=== PATIENT | female | born 1955 | race Caucasian/White ===

== ENCOUNTER → 2016-10-05 | Outpatient (REF) | payer BC ==
[2016-10-05 15:02] LABS: MEAN CORPUSCULAR HEMOGLOBIN 28.4 pg (27.0-33.0); MEAN CORPUSCULAR VOLUME 85.9 fl (80.0-96.0); WHITE BLOOD COUNT 5.1 K/mm3 (4.0-10.0)
[2016-10-05 15:12] LABS: CALCIUM LEVEL 8.8 MG/DL (8.5-10.1); CREATININE FOR GFR 1.11 MG/DL (0.55-1.02); GLOMERULAR FILTRATION RATE 53.7 (>51); POTASSIUM SERUM 3.9 MEQ/L (3.5-5.1)
== END ==
LOC: M SFHCLACO 08:12
PROVIDERS: ATTEND Physician Assistant
DX: J44.9 Chronic obstructive pulmonary disease, unspecified (principal); F17.200 Nicotine dependence, unspecified, uncomplicated; I10 Essential (primary) hypertension

== ENCOUNTER → 2017-04-19 | Outpatient (CLI) | payer BC ==
[~2017-04-19] MED LIST: ISOVUE-370 76% 100ML VIAL (Q9967) As Ordered ONE
--- NOTE | 2017-04-20 00:42 | REP ---
CT of the chest with IV contrast: Comparison is the most recent prior study dated 11/19/2015. There are multiple old left rib fractures of the left fifth through ninth ribs. Many of these fractures are healed with fibrous union. On the comparison CT there were acute fractures in the left seventh, eighth and ninth ribs. On the study today the left fifth rib fracture could be acute, subacute or old. The sixth rib fracture appears old. There are no infiltrates or effusions. The infiltrates identified on the previous study have resolved. There are numerous bulla throughout the lung hernandez bilaterally involving the upper and lower lobes equally. This is compatible with bullous emphysema. No masses or nodules are identified. There are no pleural effusions. There is no mediastinal adenopathy. No hilar adenopathy. No axillary adenopathy. The thoracic aorta is unremarkable. Cardiac size is normal. There is no pericardial effusion. The visualized upper abdominal contents are unremarkable. There is no adrenal mass. Impression: Multiple fractures in the left 5th through 9th ribs, all appearing old with the exception that the left fifth rib fracture may be acute or subacute. There is no pneumothorax, pulmonary contusion or pleural fluid collection. There are no masses or adenopathy. There are numerous small bulla throughout the upper and lower lung lobes compatible with bullous emphysema. Signed by Sukhjinder Peter MD 04/19/2017 06:39 P
== END ==
LOC: M RAD 16:37
PROVIDERS: ATTEND Physician Assistant
DX: R49.0 Dysphonia (principal); R07.81 Pleurodynia
CPT/HCPCS: 71260; Q9967

== ENCOUNTER → 2018-08-09 | Outpatient (CLI) | payer BC ==
--- NOTE | 2018-08-28 00:45 | ECWPNPC ---
PATIENT NAME: SARAH SEAMAN : 1955 GENDER: FEMALE VISIT DATE: 08/09/2018 DISCHARGE DATE: 08/09/18 1653 VISIT LOCKED DATE TIME: PHYSICIAN: GAETNAO MCKEON MD RESOURCE: GAETANO MCKEON MD REASON FOR APPOINTMENT 1. PRE OP SPINAL TAP HISTORY OF PRESENT ILLNESS FALL RISK SCREENING: SCREENING :NO FALLS IN THE PAST YEAR 62 YEAR OLD FEMALE PATIENT WITH A HISTORY OF NEUROLOGICAL CHANGES. THE PATIENT WAS REFERRED TO US BY DR. REAGAN FOR A SPINAL TAP AND IS HERE TODAY FOR AN EVALUATION. PATIENT DENIES UNEXPLAINABLE WEIGHT LOSS, FEVER, CHILLS, NEW CHANGES ON HER URINARY OR BOWEL CONTROL. PAIN SCREENING: PATIENT HAS A COMPLAINT OF ACUTE OR CHRONIC PAIN :YES CURRENT MEDICATIONS TAKING LOSARTAN POTASSIUM 50 MG TABLET 1 TABLET ORALLY ONCE A DAY TAKING SPIRIVA RESPIMAT 2.5 MCG/ACT AEROSOL SOLUTION 2 PUFFS INHALATION ONCE A DAY TAKING SYMBICORT 160-4.5 MCG/ACT AEROSOL 2 PUFFS INHALATION TWICE A DAY TAKING ALBUTEROL SULFATE (2.5 MG/3ML) 0.083% NEBULIZATION SOLUTION 3 ML INHALATION EVERY 4 HOURS NEEDED TAKING ALBUTEROL SULFATE HFA 108 (90 BASE) MCG/ACT AEROSOL SOLUTION 2 PUFFS INHALATION 2-3 TIMES A DAY TAKING CHANTIX 1 MG TABLET 1 TABLET ORALLY TWICE A DAY TAKING FEMHRT 1/5 1-5 MG-MCG TABLET (JINTELLI) 1 TABLET - ALEXA ORALLY ONCE A DAY TAKING ERGOCALCIFEROL 14176 UNIT CAPSULE 1 CAPSULE ORALLY WEEKLY TAKING ATORVASTATIN CALCIUM 10 MG TABLET 1 TABLET ORALLY ONCE A DAY TAKING VITAMIN B-12 1000 MCG TABLET 1 TABLET ORALLY ONCE A DAY MEDICATION LIST REVIEWED AND RECONCILED WITH THE PATIENT PAST MEDICAL HISTORY ANXIETY MENOPAUSAL SYNDROME COPD SMOKING HISTORY OF ALCOHOL AND SUBSTANCE ABUSE HTN HIGH CHOLESTEROL SMALL VESSAL DISEASE MS - POSSIBLE MIGRAINES W/ AURA ARTHRITIS ALLERGIES WELLBUTRIN: EXTREME AGITATION: SIDE EFFECTS SURGICAL HISTORY LAPAROSCOPY FOR ENDOMETRIOSIS 1992 TONSILLECTOMY CHILDHOOD FAMILY HISTORY FATHER: 44 YRS, HEART ATTACK MOTHER: 47 YRS 2 BROTHER(S) , 1 SISTER(S) . 2 SON(S) - HEALTHY. BROTHER - COPD, [place]. SOCIAL HISTORY GENERAL: TOBACCO USE ARE YOU A:FORMER SMOKER HOW LONG HAS IT BEEN SINCE YOU LAST SMOKED?1-5 YEARS LAST CIGARETTE 11/22/2016 LUNG CANCER SCREENING SMOKING STATUS:FORMER SMOKER BMI CARE GOAL FOLLOW-UP ABOVE NORMAL BMI FOLLOW-UPDIETARY MANAGEMENT EDUCATION, GUIDANCE, AND COUNSELING ALCOHOL SCREENING DID YOU HAVE A DRINK CONTAINING ALCOHOL IN THE PAST YEAR?NO POINTS0 INTERPRETATIONNEGATIVE RECREATIONAL DRUG USE DENIES. CAFFEINE 2-5/DAY. SEXUAL HX HAD SEX IN THE LAST 12 MONTHS (VAGINAL, ORAL, OR ANAL)?NO HAVE YOU EVER HAD AN STD?NO HIV / HEP-C SCREENING HIV TEST OFFERED TO PATIENT:YES DATE OFFERED:08/31/2016 TEST ACCEPTED:NO HEP-C TEST OFFERED TO PATIENT:YES DATE OFFERED:08/31/2016 REASON:PATIENT DECLINED TEST ACCEPTED:NO REASON:PATIENT DECLINED CONGREGATIONAL NO RESTORATION BELIEFS THAT WOULD IMPACT HEALTH CARE. LANGUAGE LANGUAGES SPOKEN:VENEZUELAN LEARNING BARRIERS / SPECIAL NEEDS CHANGE FROM LAST VISIT?NO BARRIERS TO LEARNING?NO HEARING IMPAIRED?NO VISION IMPAIRED?YES :CORRECTIVE LENSES COGNITIVELY IMPAIRED?NO READINESS TO LEARN?YES LEARNING PREFERENCES?NO LEARNING CAPABILITIES PRESENT?YES EMOTIONAL BARRIERS?NO SPECIAL DEVICES?NO WATER QUALITY TESTER NEEDED?NO OCCUPATION: ALCOHOL AND SUBSTANCE ABUSE COUNSELOR. DIET: HEALTHY. EXERCISE: USED TO RUN, BUT NO LONGER ABLE DUE TO COPD. MARITAL STATUS: . OTHERS AT HOME: SON. PAIN CLINIC PFS, CLERGY, PUBLIC HEALTH REFERRALS HAS THE PATIENT BEEN EDUCATED REGARDING HIS/HER PLAN OF CARE?YES HAS THE PATIENT BEEN EDUCATED REGARDING PAIN, THE RISK FOR PAIN, THE IMPORTANCE OF EFFECTIVE PAIN MANAGEMENT, AND THE PAIN ASSESSMENT PROCESS?YES ADVANCE DIRECTIVE ADVANCE DIRECTIVE DISCUSSED WITH PATIENT:YES HCP - SALOME SEAMAN ([facility]) REVIEWED WITH PATIENT 08/09/18 1403 JS. HOSPITALIZATION/MAJOR DIAGNOSTIC PROCEDURE FOR SURGERY ABOVE CHEST PAIN/LOW BLOOD PRESSURE SEIZURE REVIEW OF SYSTEMS REVIEWED BY: PROVIDER: GAETANO MCKEON MD . CONSTITUTIONAL: ANY CHANGE IN YOUR MEDICAL CONDITION? NO . CHILLS NO . FEVER NO . INFECTION: DO YOU HAVE NEW INFECTIONS? NO . DO YOU HAVE HISTORY OF MRSA? NO . MUSCULOSKELETAL: ANY NEW PATTERNS OF PAIN OR NUMBNESS? NO . SYTEMIC LUPUS NO . GASTROENTEROLOGY: ANY NEW CHANGE IN BOWEL CONTROL? NO . BARRETTS ESOPHAGUS NO . CIRRHOSIS NO . HEPATITIS NO . LIVER FAILURE NO . ACID REFLUX NO . UNEXPLAINED WEIGHT LOSS NO . GENITOURINARY: ANY NEW CHANGE IN BLADDER CONTROL? NO . IS THERE A CHANCE YOU COULD BE ? NO . HEMATOLOGY/LYMPH: DO YOU TAKE ANY BLOOD THINNERS? (FOR EXAMPLE- COUMADIN, PLAVIX, AGGRENOX, PLATEL, PRADAXA, OR XARELTO) NO . WHEN WAS YOUR LAST DOSE? DATE: TIME: . LOW PLATELET COUNT NO . SICKLE CELL DISEASE NO . VON WILLIEBRANDS NO . FACTOR V LEIDEN NO . THALLASEMIA NO . ANEMIA NO . EASY BRUISING NO . NEUROLOGY: HAVE YOU FALLEN IN THE PAST 6 MONTHS? NO . ANY NEW EXTREMITY NUMBNESS OR WEAKNESS? NO . HEAD INJURY NO . DEMENTIA NO . CEREBRAL PALSY NO . MULTIPLE SCLEROSIS YES, POSSIBLE, BEING WORKED UP FOR MS CURRENTLY. STATES SOME PARALYSIS TO RIGHT SIDE FOR A FEW WEEKS IN HER 30'S . DIZZINESS NO . HEADACHE NO . STROKES NO . VERTIGO NO . CARDIOLOGY: DO YOU HAVE A PACEMAKER OR DEFIBRILLATOR? NO . ANGINA NO . HEART ATTACK NO . HEART SURGERY NO . CONGESTIVE HEART FAILURE/FLUID OVERLOAD NO . CHEST PAIN NO . HIGH BLOOD PRESSURE ON MEDICATION(S) . IRREGULAR HEART BEAT NO . RESPIRATORY: HAVE YOU BEEN SICK IN THE PAST WEEK? NO . FEVER NO . FLU LIKE SYMPTOMS? NO . CPAP NO . BYPAP NO . ASTHMA YES . EMPHYSEMA YES . CHRONIC LUNG DISEASES YES, COPD . SHORTNESS OF BREATH ON EXERTION NO . COUGH NO . SNORING NO . INTEGUMENTARY: DO YOU HAVE ANY RASHES OR OPEN SORES? NO . ALLERGIC/IMMUNO: ARE YOU ALLERGIC TO SHELLFISH OR IV DYE? NO . ANY NEW ALLERGIES? NO . PSYCHIATRIC: DO YOU HAVE THOUGHTS OF HURTING YOURSELF OR SOMEONE ELSE? NO . ARE YOU ABUSED, NEGLECTED, OR IN AN UNSAFE ENVIRONMENT? NO . ENDOCRINOLOGY: ARE YOU DIABETIC? NO . THYROID DISORDER NO . OTHER: DO YOU NEED ANY PRESCRIPTIONS? NO . IF YES, PLEASE LIST: ____ . ANY NEW PROBLEMS WITH YOUR MEDICATIONS? NO . WHEN DID YOU LAST EAT? ____ . WHEN DID YOU LAST DRINK? ____ . WHAT DID YOU LAST DRINK? ____ . NAME OF PERSON DRIVING YOU HOME? ____ . DO YOU HAVE ANY OTHER QUESTIONS OR CONCERNS NO . VITAL SIGNS WT 141.6 LBS, HT 66.25 IN, BMI 22.68 INDEX, BP 115/79 MM HG, HR 76 /MIN, RR 16 /MIN, TEMP 96.0 F, OXYGEN SAT % 97%, SAFE IN ENV? (Y/N) YES, NA INITIALS AW 1348, REVIEWED BY: MARICHUY. EXAMINATION GENERAL EXAMINATION: PATIENT IS ALERT O X 3 AND COOPERATIVE. LUNGS CLEAR, TO AUSCULTATION. HEART: NO MURMURS OR GALLOPS; FACIAL CRANIAL NERVES ARE GROSSLY NORMAL. GOOD SYMMETRY OF FACIAL MUSCLE MOVEMENT. NORMAL VISUAL LAZARO. ASSESSMENTS NEUROLOGICAL SYMPTOMS - R29.90 (PRIMARY) MS PROTOCOL. TREATMENT NEUROLOGICAL SYMPTOMS CLINICAL NOTES: WE DISCUSSED SEVERAL ISSUES WITH MRS. SEAMAN'S CASE. THE PATIENT WILL COME IN FOR A SPINAL TAP IN A FEW WEEKS. WE DISCUSSED THE BENEFITS AND RISKS OF THE PROCEDURE AND THE PATIENT WOULD LIKE TO PROCEED. INSTRUCTIONS WERE GIVEN, QUESTIONS WERE ANSWERED, PATIENT REPORTS UNDERSTANDING AND AGREES WITH THE PLAN. I, CHARAN HAYES, DOCUMENTED THE ABOVE INFORMATION ACTING A SCRIBE FOR DR. MCKEON. I HAVE REVIEWED THE ABOVE DOCUMENT, WRITTEN BY CHARAN MOJICAIBAdolfo AND I VERIFY THAT IT IS ACCURATE. PROCEDURE CODES FA211 ESTABILISHED PATIENT [facility] FACILITY CHARGE G8427 CURRENT MEDS W/DOSAGES DOCUMENTED G8730 PAIN ASSESS POS TOOL F/U PLAN DOC DISPOSITION & COMMUNICATION FOLLOW UP 3 WEEKS ELECTRONICALLY SIGNED BY GAETANO MCKEON MD, MD ON 08/27/2018 AT 04:34 PM EST DISCLAIMER : THIS IS A VISIT SUMMARY EXTRACTED FROM THE [employer] CHART. IT IS NOT A COPY OF THE [employer] PROGRESS NOTE. MTDD
== END ==
LOC: M PAIN 13:45
PROVIDERS: ATTEND Anesthesiology
DX: R29.90 Unspecified symptoms and signs involving the nervous system (principal); F41.9 Anxiety disorder, unspecified; J45.909 Unspecified asthma, uncomplicated; I10 Essential (primary) hypertension; E78.00 Pure hypercholesterolemia, unspecified; I73.9 Peripheral vascular disease, unspecified; M19.90 Unspecified osteoarthritis, unspecified site; G43.909 Migraine, unspecified, not intractable, without status migrainosus; Z79.899 Other long term (current) drug therapy; Z88.8 Allergy status to other drugs, medicaments and biological substances; Z86.59 Personal history of other mental and behavioral disorders; Z87.891 Personal history of nicotine dependence

== ENCOUNTER → 2018-08-29 | Outpatient (CLI) | payer BC ==
[~2018-08-29] MED LIST changes: -ISOVUE-370 76% 100ML VIAL (Q9967) As Ordered ONE; +LIDOCAINE 1% SDV INJ 30 ML VIAL As Ordered ONE; +MIDAZOLAM INJ 2 MG/2 ML VIAL (J2250) As Ordered ONE; +fentaNYL 100 MCG/2 ML INJECTION (J3010) As Ordered ONE
[2018-08-29 15:54] LABS: APPEARANCE, CSF CLEAR (CLEAR); COLOR, CSF COLORLESS (COLORLESS); CSF TUBE# CELL CNT TUBE 3
[2018-08-29 15:58] LABS: CSF TUBE# GLU TUBE 1; CSF TUBE# TP TUBE 1; GLUCOSE CSF 48 MG/DL (40-75); TOTAL PROTEIN,CSF 38 MG/DL (15-45)
--- NOTE | 2018-09-12 00:41 | ECWPNPC ---
PATIENT NAME: SARAH SEAMAN : 1955 GENDER: FEMALE VISIT DATE: 08/29/2018 DISCHARGE DATE: 08/29/18 1524 VISIT LOCKED DATE TIME: PHYSICIAN: GAETANO MCKEON MD RESOURCE: GAETANO MCKEON MD REASON FOR APPOINTMENT 1. SPINAL TAP HISTORY OF PRESENT ILLNESS HISTORY OF PRESENT ILLNESS: PAIN THE PATIENT DESCRIBES THE PAIN... FALL RISK SCREENING: SCREENING :NO FALLS IN THE PAST YEAR CURRENT MEDICATIONS TAKING LOSARTAN POTASSIUM 50 MG TABLET 1 TABLET ORALLY ONCE A DAY, NOTES: 08-28-182099 TAKING SPIRIVA RESPIMAT 2.5 MCG/ACT AEROSOL SOLUTION 2 PUFFS INHALATION ONCE A DAY, NOTES: 08-29-18699 TAKING ALBUTEROL SULFATE (2.5 MG/3ML) 0.083% NEBULIZATION SOLUTION 3 ML INHALATION EVERY 4 HOURS NEEDED, NOTES: NOT LATELY TAKING ALBUTEROL SULFATE HFA 108 (90 BASE) MCG/ACT AEROSOL SOLUTION 2 PUFFS INHALATION 2-3 TIMES A DAY TAKING CHANTIX 1 MG TABLET 1 TABLET ORALLY TWICE A DAY, NOTES: 08-29-18699 TAKING ERGOCALCIFEROL 10693 UNIT CAPSULE 1 CAPSULE ORALLY WEEKLY, NOTES: Tuesday TAKING ATORVASTATIN CALCIUM 10 MG TABLET 1 TABLET ORALLY ONCE A DAY, NOTES: 08-28-182099 TAKING VITAMIN B-12 1000 MCG TABLET 1 TABLET ORALLY ONCE A DAY, NOTES: 08-28-182099 TAKING SYMBICORT 160-4.5 MCG/ACT AEROSOL 2 PUFFS INHALATION TWICE A DAY, NOTES: 08-29-18 08 TAKING FEMHRT 1/5 1-5 MG-MCG TABLET (JINTELLI) 1 TABLET - ALEXA ORALLY ONCE A DAY, NOTES: 08-28-182099 MEDICATION LIST REVIEWED AND RECONCILED WITH THE PATIENT PAST MEDICAL HISTORY ANXIETY MENOPAUSAL SYNDROME COPD SMOKING HISTORY OF ALCOHOL AND SUBSTANCE ABUSE HTN HIGH CHOLESTEROL SMALL VESSAL DISEASE MS - POSSIBLE MIGRAINES W/ AURA ARTHRITIS ALLERGIES WELLBUTRIN: EXTREME AGITATION: SIDE EFFECTS SURGICAL HISTORY LAPAROSCOPY FOR ENDOMETRIOSIS 1992 TONSILLECTOMY CHILDHOOD FAMILY HISTORY FATHER: 44 YRS, HEART ATTACK MOTHER: 47 YRS 2 BROTHER(S) , 1 SISTER(S) . 2 SON(S) - HEALTHY. BROTHER - COPD, [place]. SOCIAL HISTORY GENERAL: TOBACCO USE ARE YOU A:FORMER SMOKER HOW LONG HAS IT BEEN SINCE YOU LAST SMOKED?1-5 YEARS LAST CIGARETTE 11/22/2016 LUNG CANCER SCREENING SMOKING STATUS:FORMER SMOKER BMI CARE GOAL FOLLOW-UP ABOVE NORMAL BMI FOLLOW-UPDIETARY MANAGEMENT EDUCATION, GUIDANCE, AND COUNSELING ALCOHOL SCREENING DID YOU HAVE A DRINK CONTAINING ALCOHOL IN THE PAST YEAR?NO POINTS0 INTERPRETATIONNEGATIVE RECREATIONAL DRUG USE DENIES. CAFFEINE 2-5/DAY. SEXUAL HX HAD SEX IN THE LAST 12 MONTHS (VAGINAL, ORAL, OR ANAL)?NO HAVE YOU EVER HAD AN STD?NO HIV / HEP-C SCREENING HIV TEST OFFERED TO PATIENT:YES DATE OFFERED:08/31/2016 TEST ACCEPTED:NO HEP-C TEST OFFERED TO PATIENT:YES DATE OFFERED:08/31/2016 REASON:PATIENT DECLINED TEST ACCEPTED:NO REASON:PATIENT DECLINED YARSANISM NO BAPTIST BELIEFS THAT WOULD IMPACT HEALTH CARE. LANGUAGE LANGUAGES SPOKEN:ARABIC LEARNING BARRIERS / SPECIAL NEEDS CHANGE FROM LAST VISIT?NO BARRIERS TO LEARNING?NO HEARING IMPAIRED?NO VISION IMPAIRED?YES COGNITIVELY IMPAIRED?NO :CORRECTIVE LENSES READINESS TO LEARN?YES LEARNING PREFERENCES?NO LEARNING CAPABILITIES PRESENT?YES EMOTIONAL BARRIERS?NO SPECIAL DEVICES?NO HEALTH EDUCATION TEACHER NEEDED?NO OCCUPATION: ALCOHOL AND SUBSTANCE ABUSE COUNSELOR. DIET: HEALTHY. EXERCISE: USED TO RUN, BUT NO LONGER ABLE DUE TO COPD. MARITAL STATUS: . OTHERS AT HOME: SON. PAIN CLINIC PFS, CLERGY, PUBLIC HEALTH REFERRALS HAS THE PATIENT BEEN EDUCATED REGARDING HIS/HER PLAN OF CARE?YES HAS THE PATIENT BEEN EDUCATED REGARDING PAIN, THE RISK FOR PAIN, THE IMPORTANCE OF EFFECTIVE PAIN MANAGEMENT, AND THE PAIN ASSESSMENT PROCESS?YES ADVANCE DIRECTIVE ADVANCE DIRECTIVE DISCUSSED WITH PATIENT:YES HCP - SALOME SEAMAN ([facility]) REVIEWED WITH PATIENT 08/09/18 1403 JS. HOSPITALIZATION/MAJOR DIAGNOSTIC PROCEDURE FOR SURGERY ABOVE CHEST PAIN/LOW BLOOD PRESSURE SEIZURE REVIEW OF SYSTEMS REVIEWED BY: PROVIDER: . CONSTITUTIONAL: ANY CHANGE IN YOUR MEDICAL CONDITION? NO . CHILLS NO . FEVER NO . INFECTION: DO YOU HAVE NEW INFECTIONS? NO . DO YOU HAVE HISTORY OF MRSA? NO . MUSCULOSKELETAL: ANY NEW PATTERNS OF PAIN OR NUMBNESS? NO . GASTROENTEROLOGY: ANY NEW CHANGE IN BOWEL CONTROL? NO . GENITOURINARY: ANY NEW CHANGE IN BLADDER CONTROL? NO . IS THERE A CHANCE YOU COULD BE ? NO . HEMATOLOGY/LYMPH: DO YOU TAKE ANY BLOOD THINNERS? (FOR EXAMPLE- COUMADIN, PLAVIX, AGGRENOX, PLATEL, PRADAXA, OR XARELTO) NO . WHEN WAS YOUR LAST DOSE? DATE: TIME: . NEUROLOGY: HAVE YOU FALLEN IN THE PAST 12 MONTHS? YES . ANY NEW EXTREMITY NUMBNESS OR WEAKNESS? NO . CARDIOLOGY: DO YOU HAVE A PACEMAKER OR DEFIBRILLATOR? NO . RESPIRATORY: HAVE YOU BEEN SICK IN THE PAST WEEK? NO . FEVER NO . FLU LIKE SYMPTOMS? NO . COUGH NO . INTEGUMENTARY: DO YOU HAVE ANY RASHES OR OPEN SORES? NO . ALLERGIC/IMMUNO: ARE YOU ALLERGIC TO IV DYE? NO . ANY NEW ALLERGIES? NO . PSYCHIATRIC: DO YOU HAVE THOUGHTS OF HURTING YOURSELF OR SOMEONE ELSE? NO . ARE YOU ABUSED, NEGLECTED, OR IN AN UNSAFE ENVIRONMENT? NO . ENDOCRINOLOGY: ARE YOU DIABETIC? NO . OTHER: DO YOU NEED ANY PRESCRIPTIONS? NO . IF YES, PLEASE LIST: ____ . ANY NEW PROBLEMS WITH YOUR MEDICATIONS? NO . WHEN DID YOU LAST EAT? ____08-29-18 0630 . WHEN DID YOU LAST DRINK? ____08-29-18 1050 . WHAT DID YOU LAST DRINK? ____WATER . NAME OF PERSON DRIVING YOU HOME? ____TAYLOR SEAMAN . DO YOU HAVE ANY OTHER QUESTIONS OR CONCERNS NO . VITAL SIGNS WT 139 LBS, HT 66.25 IN, BMI 22.26 INDEX, BP 132/65 MM HG, HR 72 /MIN, RR 18 /MIN, TEMP 98.0 F, OXYGEN SAT % 97%, NA INITIALS SC 13:15, REVIEWED BY: KG. ASSESSMENTS ENCOUNTER FOR LUMBAR PUNCTURE - Z01.89 (PRIMARY) MS PROTOCOL. TREATMENT ENCOUNTER FOR LUMBAR PUNCTURE CLINICAL NOTES: SPINAL TAP WITH IV SEDATION- PLEASE SEE [employer]. PROCEDURE CODES 65190 SPINAL FLUID TAP DIAGNOSTIC 24890 MOD SED SAME PHYS/QHP 5/>YRS 75171 MOD SED SAME PHYS/QHP EA DISPOSITION & COMMUNICATION FOLLOW UP REASON: F/UP WITH NEUROLOGIST ELECTRONICALLY SIGNED BY GAETANO MCKEON MD, MD ON 09/11/2018 AT 05:45 PM EST DISCLAIMER : THIS IS A VISIT SUMMARY EXTRACTED FROM THE [employer] CHART. IT IS NOT A COPY OF THE [employer] PROGRESS NOTE. MTDD
== END ==
LOC: M PAIN 13:00
PROVIDERS: ATTEND Anesthesiology
DX: G35 Multiple sclerosis (principal); G43.909 Migraine, unspecified, not intractable, without status migrainosus; G44.209 Tension-type headache, unspecified, not intractable; G31.84 Mild cognitive impairment of uncertain or unknown etiology
CPT/HCPCS: 36415; 62270; 82784; 82945; 83916; 84157; 87070; 87102; 87205; 87252; 87483; 88108; 88313; 89050; 99152; 99153; J2250; J3010

== ENCOUNTER 2021-12-21 07:35 | Inpatient (IN) | payer BC, MEDICAID, OTHER ==
[~2021-12-21] VITALS: Ht 167.6 cm; Wt 49.3 kg
[2021-12-21] MEDS ORDERED: IPRATROPIUM 0.5MG/ALBUTEROL 2.5MG INH SOL UD 3ML (DUONEB) NEB ONE (07:50)
[2021-12-21] MEDS ORDERED: NS 1,000 ML IV SCH (07:50)
[2021-12-21 08:04] LABS: BASO % 0.1 % (0.0-1.0); HEMATOCRIT 37.5 % (36.0-47.0); HEMOGLOBIN 12.2 g/dl (12.0-15.5); LYMPH # 0.6 10^3/uL (1.5-5.0); LYMPH % 6.4 % (24.0-44.0); MEAN CORPUSCULAR HEMOGLOBIN 27.7 pg (27.0-33.0); MEAN CORPUSCULAR HGB CONC 32.5 g/dl (32.0-36.5); MONO # 1.1 10^3/uL (0.0-0.8); MONO % 12.3 % (2.0-8.0); NEUTROPHILS # 7.3 10^3/uL (1.5-8.5); NEUTROPHILS % 80.7 % (36.0-66.0); PLATELET COUNT, AUTOMATED 312 10^3/uL (150-450); RED BLOOD COUNT 4.41 10^6/uL (4.00-5.40); WHITE BLOOD COUNT 9.1 10^3/uL (4.0-10.0)
[2021-12-21] MEDS ORDERED: ALBU83IN NEB (08:12)
[2021-12-21] MEDS ORDERED: DOXY100C3 PO (08:12)
[2021-12-21] MEDS ORDERED: LOSA50TA28 PO (08:12)
[2021-12-21] MEDS ORDERED: BUDE10.2 INH (08:12)
[2021-12-21] MEDS ORDERED: ALPR0.5T3 PO (08:12)
[2021-12-21] MEDS ORDERED: TRAZ-257 PO (08:12)
[2021-12-21] MEDS ORDERED: SPIR12.9 INH (08:12)
[2021-12-21] MEDS ORDERED: ELIQ5TAB PO (08:12)
[2021-12-21] MEDS ORDERED: METO1TAB32 PO (08:12)
[2021-12-21] MEDS ORDERED: JINT1TAB PO (08:12)
[2021-12-21] MEDS ORDERED: ATOR1TAB19 PO (08:12)
[2021-12-21] MEDS ORDERED: DALI1TAB2 PO (08:12)
[2021-12-21] MEDS ORDERED: NITROGLYCERIN 0.4 MG SUBL TABLET As Ordered ONE (08:14)
[2021-12-21] MEDS ORDERED: NS 500 ML IV ONE (08:15)
[2021-12-21 08:18] LABS: INR 1.45; PROTHROMBIN TIME 18.1 SECONDS (12.7-14.5)
[2021-12-21] MEDS: NITROGLYCERIN 0.4 MG SUBL TABLET SL PRN ×2 (08:20→08:26)
[2021-12-21] MEDS ORDERED: ISOVUE-370 76% 100ML VIAL As Ordered ONE (08:27)
[2021-12-21 08:35] LABS: CK-MB VALUE MASS 1.2 NG/ML (<3.6); MB/CK RELATIVE INDEX 1.97 (< OR =4)
[2021-12-21 08:40] LABS: ALBUMIN 2.9 GM/DL (3.2-5.2); ALT/SGPT 19 U/L (12-78); BILIRUBIN,DIRECT 0.1 MG/DL (0.0-0.2); BILIRUBIN,TOTAL 0.4 MG/DL (0.2-1.0); BLOOD UREA NITROGEN 8 MG/DL (7-18); CALCIUM LEVEL 9.3 MG/DL (8.8-10.2); CARBON DIOXIDE LEVEL 26 MEQ/L (21-32); CHLORIDE LEVEL 105 MEQ/L (98-107); CREATININE FOR GFR 0.88 MG/DL (0.55-1.30); GLOMERULAR FILTRATION RATE > 60.0 (>45); GLUCOSE, FASTING 134 MG/DL (70-100); NT-PRO BNP 371 PG/ML (<125); POTASSIUM SERUM 3.5 MEQ/L (3.5-5.1); SODIUM LEVEL 139 MEQ/L (136-145); THYROID STIMULATING HORMONE 0.647 uIU/ML (0.358-3.740); THYROXINE (T4) 9.6 UG/DL (4.5-12.0); TOTAL PROTEIN 6.6 GM/DL (6.4-8.2)
[2021-12-21] MEDS ORDERED: NITROGLYCERIN 2% OINT 1 GM *U/D* PKT TOP ONE (08:50)
[2021-12-21] MEDS ORDERED: AZITHROMYCIN INJ 500 MG, VIAL MATE ADAPTER 1 EACH in NS 250 ML IV ONE (09:10)
[2021-12-21] MEDS ORDERED: cefTRIAXone SOD 1 GM in D5W MINI-BAG PLUS 50 ML IV ONE (09:10)
[2021-12-21 09:35] LABS: CK-MB VALUE MASS < 1.0 NG/ML (<3.6); CPK CREATINE PHOSPHOKINASE 50 U/L (26-192)
[2021-12-21] MEDS ORDERED: B-12100010 PO (10:03)
[2021-12-21] MEDS ORDERED: VENTAER INH (10:03)
[2021-12-21] MEDS ORDERED: PRED5PAK PO (10:03)
[2021-12-21] MEDS ORDERED: ACET-897 PO (10:03)
[2021-12-21] MEDS ORDERED: HOME MED LIST COMPLETE! XX SCH (10:05)
[2021-12-21 11:56] LABS: CK-MB VALUE MASS 1.3 NG/ML (<3.6); MB/CK RELATIVE INDEX 2.28 (< OR =4)
[2021-12-21] MEDS: LEVALBUTEROL 1.25 MG/0.5 ML CONCENTRATE NEB INH SCH ×4 (12:00→23:50)
[2021-12-21 12:50] VITALS: BP 109/80
[2021-12-21] MEDS: methylPREDNISolone 40MG 1ML VIAL IV SCH ×2 (13:50→19:00)
[2021-12-21] MEDS: ALPRAZolam 0.5 MG TAB PO PRN (16:21)
[2021-12-21] MEDS: SYMBICORT 160/4.5MCG INHALER 6GM INH SCH (20:10)
[2021-12-21] MEDS: ATORVASTATIN 10 MG TAB PO SCH (20:45)
[2021-12-21] MEDS: traZODone 100 MG TAB PO SCH (20:45)
[2021-12-21] MEDS: APIXABAN 5 MG TAB (ELIQUIS) PO SCH (20:45)
[2021-12-21 21:18] VITALS: BP 114/76
[2021-12-22] MEDS ORDERED: CEPACOL LOZENGE PO PRN (00:10)
[2021-12-22] MEDS ORDERED: FLUTICASONE PROP 0.05% NASAL SPRAY 16 GM (FLONASE) NARES PRN (00:10)
[2021-12-22] MEDS: methylPREDNISolone 40MG 1ML VIAL IV SCH ×4 (00:20→18:34)
[2021-12-22] MEDS: guaiFENesin SYRUP 200MG 10ML UDC PO PRN ×3 (00:20→16:05)
[2021-12-22] MEDS: LEVALBUTEROL 1.25 MG/0.5 ML CONCENTRATE NEB INH SCH ×5 (04:00→19:51)
[2021-12-22 05:41] VITALS: BP 112/70
[2021-12-22 06:32] LABS: HEMATOCRIT 31.8 % (36.0-47.0); HEMOGLOBIN 10.4 g/dl (12.0-15.5); MEAN CORPUSCULAR HEMOGLOBIN 28.4 pg (27.0-33.0); MEAN CORPUSCULAR HGB CONC 32.7 g/dl (32.0-36.5); MEAN CORPUSCULAR VOLUME 86.9 fl (80.0-96.0); PLATELET COUNT, AUTOMATED 305 10^3/uL (150-450); RED BLOOD COUNT 3.66 10^6/uL (4.00-5.40); WHITE BLOOD COUNT 8.1 10^3/uL (4.0-10.0)
[2021-12-22 06:57] LABS: BLOOD UREA NITROGEN 13 MG/DL (7-18); CALCIUM LEVEL 9.4 MG/DL (8.8-10.2); CARBON DIOXIDE LEVEL 26 MEQ/L (21-32); CHLORIDE LEVEL 108 MEQ/L (98-107); CREATININE FOR GFR 0.84 MG/DL (0.55-1.30); GLOMERULAR FILTRATION RATE > 60.0 (>45); GLUCOSE, FASTING 133 MG/DL (70-100); POTASSIUM SERUM 3.9 MEQ/L (3.5-5.1); SODIUM LEVEL 144 MEQ/L (136-145)
[2021-12-22] MEDS: TIOTROPIUM INHALER/CAPSULE (SPIRIVA) INH SCH (07:22)
[2021-12-22] MEDS: SYMBICORT 160/4.5MCG INHALER 6GM INH SCH ×2 (07:22→19:50)
[2021-12-22 08:04] LABS: LYMPHOCYTES 10 % (16-44); MONOCYTES 3 % (0-5); NEUTROPHILS 87 % (28-66); PLATELET ESTIMATE NORMAL (NORMAL)
[2021-12-22 08:05] LABS: OVALOCYTES 1+
[2021-12-22] MEDS: APIXABAN 5 MG TAB (ELIQUIS) PO SCH ×2 (08:45→20:40)
[2021-12-22] MEDS ORDERED: cefTRIAXone SOD 1 GM in D5W MINI-BAG PLUS 50 ML IV SCH (10:00)
[2021-12-22] MEDS ORDERED: AZITHROMYCIN INJ 500 MG, VIAL MATE ADAPTER 1 EACH in NS 250 ML IV SCH (11:00)
[2021-12-22] MEDS: ALPRAZolam 0.5 MG TAB PO PRN ×2 (13:34→18:34)
[2021-12-22 14:00] VITALS: BP 133/75
[2021-12-22] MEDS ORDERED: LEVALBUTEROL 1.25 MG/0.5 ML CONCENTRATE NEB INH PRN (16:05)
[2021-12-22 16:15] VITALS: BP 144/72
[2021-12-22 16:30] LABS: ABG BASE EXCESS 1.4 (-2.0-2.0); ABG HCO3 25.9 MEQ/L (22.0-26.0); ABG O2 SATURATION 99.5 % (95.0-99.0); ABG PARTIAL PRESSURE CO2 40.9 mmHg (35.0-45.0); ABG PARTIAL PRESSURE O2 193.5 mmHg (75.0-100.0); ABG STANDARD HCO3 25.7 MEQ/L (22.0-26.0); ABG TOTAL CO2 27.2 MEQ/L (23.0-31.0)
[2021-12-22] MEDS: DEXTROMETHORPHAN 60MG/10ML SUSP 90ML BTL(DELSYM) PO PRN (17:28)
[2021-12-22] MEDS ORDERED: hydrOXYzine 25 MG TAB PO ONE (20:25)
[2021-12-22] MEDS: ATORVASTATIN 10 MG TAB PO SCH (20:39)
[2021-12-22] MEDS: DOXYCYCLINE HYCLATE 100MG TABLET PO SCH (20:39)
[2021-12-22] MEDS: BENZONATATE 100MG CAPSULE PO PRN (20:40)
[2021-12-22] MEDS: traZODone 100 MG TAB PO SCH (20:40)
[2021-12-22 22:00] VITALS: BP 116/63
[2021-12-23] MEDS: methylPREDNISolone 40MG 1ML VIAL IV SCH ×4 (01:17→18:19)
[2021-12-23] MEDS: guaiFENesin SYRUP 200MG 10ML UDC PO PRN (01:17)
[2021-12-23] MEDS ORDERED: METOPROLOL SUCC *XL* 25MG TAB (TopROL *XL*) PO ONE (01:30)
[2021-12-23] MEDS: LEVALBUTEROL 1.25 MG/0.5 ML CONCENTRATE NEB INH SCH ×6 (04:00→20:00)
[2021-12-23 06:00] VITALS: BP 122/79
[2021-12-23 06:45] LABS: BASO % 0.1 % (0.0-1.0); HEMATOCRIT 34.9 % (36.0-47.0); HEMOGLOBIN 11.1 g/dl (12.0-15.5); LYMPH # 0.7 10^3/uL (1.5-5.0); LYMPH % 5.8 % (24.0-44.0); MEAN CORPUSCULAR HEMOGLOBIN 27.6 pg (27.0-33.0); MEAN CORPUSCULAR HGB CONC 31.8 g/dl (32.0-36.5); MEAN CORPUSCULAR VOLUME 86.8 fl (80.0-96.0); MONO # 0.4 10^3/uL (0.0-0.8); MONO % 2.9 % (2.0-8.0); NEUTROPHILS # 11.3 10^3/uL (1.5-8.5); NEUTROPHILS % 90.1 % (36.0-66.0); PLATELET COUNT, AUTOMATED 392 10^3/uL (150-450); RED BLOOD COUNT 4.02 10^6/uL (4.00-5.40); WHITE BLOOD COUNT 12.6 10^3/uL (4.0-10.0)
[2021-12-23 07:15] LABS: BLOOD UREA NITROGEN 16 MG/DL (7-18); CARBON DIOXIDE LEVEL 29 MEQ/L (21-32); CHLORIDE LEVEL 111 MEQ/L (98-107); CREATININE FOR GFR 0.84 MG/DL (0.55-1.30); GLOMERULAR FILTRATION RATE > 60.0 (>45); GLUCOSE, FASTING 132 MG/DL (70-100); POTASSIUM SERUM 4.4 MEQ/L (3.5-5.1); SODIUM LEVEL 144 MEQ/L (136-145)
[2021-12-23] MEDS: TIOTROPIUM INHALER/CAPSULE (SPIRIVA) INH SCH (07:38)
[2021-12-23] MEDS: SYMBICORT 160/4.5MCG INHALER 6GM INH SCH ×2 (07:38→20:00)
[2021-12-23] MEDS ORDERED: METOPROLOL TART 25 MG TABLET PO ONE (09:00)
[2021-12-23] MEDS: APIXABAN 5 MG TAB (ELIQUIS) PO SCH ×2 (09:06→20:10)
[2021-12-23] MEDS: DOXYCYCLINE HYCLATE 100MG TABLET PO SCH ×2 (09:06→20:10)
[2021-12-23] MEDS ORDERED: DIGOXIN INJ 0.5 MG/2 ML AMP (J1160) IV STA (11:24)
[2021-12-23] MEDS: METOPROLOL TART 25 MG TABLET PO SCH ×2 (13:24→18:20)
[2021-12-23 14:26] VITALS: BP 135/77
[2021-12-23 17:09] VITALS: BP 131/69
[2021-12-23] MEDS ORDERED: DIGOXIN INJ 0.5 MG/2 ML AMP (J1160) IV ONE (17:30)
[2021-12-23] MEDS: ALPRAZolam 0.5 MG TAB PO PRN (18:24)
[2021-12-23 20:00] VITALS: BP 125/64
[2021-12-23] MEDS: traZODone 100 MG TAB PO SCH (20:10)
[2021-12-23] MEDS: ATORVASTATIN 10 MG TAB PO SCH (20:10)
[2021-12-23] MEDS ORDERED: METOPROLOL SUCC *XL* 25MG TAB (TopROL *XL*) PO SCH (21:00)
[2021-12-23] MEDS: DEXTROMETHORPHAN 60MG/10ML SUSP 90ML BTL(DELSYM) PO PRN (21:55)
[2021-12-24] VITALS: BP 120/64
[2021-12-24] MEDS: METOPROLOL TART 25 MG TABLET PO SCH ×4 (00:40→20:32)
[2021-12-24] MEDS: methylPREDNISolone 40MG 1ML VIAL IV SCH ×3 (00:40→20:34)
[2021-12-24 04:00] VITALS: BP 125/75
[2021-12-24] MEDS: LEVALBUTEROL 1.25 MG/0.5 ML CONCENTRATE NEB INH SCH ×6 (04:00→19:26)
[2021-12-24 06:05] LABS: BASO % 0.3 % (0.0-1.0); HEMATOCRIT 34.9 % (36.0-47.0); HEMOGLOBIN 11.3 g/dl (12.0-15.5); LYMPH # 0.6 10^3/uL (1.5-5.0); LYMPH % 6.2 % (24.0-44.0); MEAN CORPUSCULAR HEMOGLOBIN 28.1 pg (27.0-33.0); MEAN CORPUSCULAR HGB CONC 32.4 g/dl (32.0-36.5); MEAN CORPUSCULAR VOLUME 86.8 fl (80.0-96.0); MONO # 0.2 10^3/uL (0.0-0.8); MONO % 2.5 % (2.0-8.0); NEUTROPHILS # 8.4 10^3/uL (1.5-8.5); PLATELET COUNT, AUTOMATED 383 10^3/uL (150-450); RED BLOOD COUNT 4.02 10^6/uL (4.00-5.40); WHITE BLOOD COUNT 9.4 10^3/uL (4.0-10.0)
[2021-12-24 06:26] LABS: BLOOD UREA NITROGEN 21 MG/DL (7-18); CARBON DIOXIDE LEVEL 29 MEQ/L (21-32); CHLORIDE LEVEL 107 MEQ/L (98-107); CREATININE FOR GFR 0.96 MG/DL (0.55-1.30); GLOMERULAR FILTRATION RATE > 60.0 (>45); GLUCOSE, FASTING 120 MG/DL (70-100); POTASSIUM SERUM 4.2 MEQ/L (3.5-5.1); SODIUM LEVEL 142 MEQ/L (136-145)
[2021-12-24] MEDS: TIOTROPIUM INHALER/CAPSULE (SPIRIVA) INH SCH (07:46)
[2021-12-24] MEDS: SYMBICORT 160/4.5MCG INHALER 6GM INH SCH ×2 (07:47→19:26)
[2021-12-24 08:00] VITALS: BP 122/74
[2021-12-24] MEDS: APIXABAN 5 MG TAB (ELIQUIS) PO SCH ×2 (08:31→20:33)
[2021-12-24] MEDS: DOXYCYCLINE HYCLATE 100MG TABLET PO SCH ×2 (08:31→20:33)
[2021-12-24] MEDS: LACTOBACILLUS ACIDOPHILUS CAP (BACID) PO SCH (08:31)
[2021-12-24 12:00] VITALS: BP 123/68
[2021-12-24] MEDS: BENZONATATE 100MG CAPSULE PO PRN (12:46)
[2021-12-24] MEDS ORDERED: BIOTENE DRY MOUTH SSP PRN (13:00)
[2021-12-24 16:00] VITALS: BP 157/76
[2021-12-24] MEDS: traZODone 100 MG TAB PO SCH (20:32)
[2021-12-24] MEDS: ATORVASTATIN 10 MG TAB PO SCH (20:33)
[2021-12-24] MEDS: guaiFENesin SYRUP 200MG 10ML UDC PO PRN (20:33)
[2021-12-24] MEDS: ALPRAZolam 0.5 MG TAB PO PRN (20:33)
[2021-12-25] VITALS: BP 155/74
[2021-12-25] MEDS: LEVALBUTEROL 1.25 MG/0.5 ML CONCENTRATE NEB INH SCH ×3 (03:44→07:14)
[2021-12-25 04:00] VITALS: BP 134/59
[2021-12-25 06:14] LABS: HEMATOCRIT 34.6 % (36.0-47.0); HEMOGLOBIN 11.1 g/dl (12.0-15.5); MEAN CORPUSCULAR HEMOGLOBIN 27.5 pg (27.0-33.0); MEAN CORPUSCULAR HGB CONC 32.1 g/dl (32.0-36.5); MEAN CORPUSCULAR VOLUME 85.9 fl (80.0-96.0); PLATELET COUNT, AUTOMATED 355 10^3/uL (150-450); RED BLOOD COUNT 4.03 10^6/uL (4.00-5.40); WHITE BLOOD COUNT 8.2 10^3/uL (4.0-10.0)
[2021-12-25 06:35] LABS: BLOOD UREA NITROGEN 21 MG/DL (7-18); CALCIUM LEVEL 8.9 MG/DL (8.8-10.2); CARBON DIOXIDE LEVEL 29 MEQ/L (21-32); CHLORIDE LEVEL 107 MEQ/L (98-107); GLOMERULAR FILTRATION RATE > 60.0 (>45); GLUCOSE, FASTING 109 MG/DL (70-100); POTASSIUM SERUM 4.3 MEQ/L (3.5-5.1); SODIUM LEVEL 143 MEQ/L (136-145)
[2021-12-25] MEDS: SYMBICORT 160/4.5MCG INHALER 6GM INH SCH (07:14)
[2021-12-25] MEDS: TIOTROPIUM INHALER/CAPSULE (SPIRIVA) INH SCH (07:14)
[2021-12-25 07:17] VITALS: O2SAT 90
[2021-12-25 07:29] LABS: LYMPHOCYTES 11 % (16-44); METAMYELOCYTES 2 % (0-0); MONOCYTES 1 % (0-5); NEUTROPHILS 86 % (28-66); PLATELET ESTIMATE NORMAL (NORMAL)
[2021-12-25 08:00] VITALS: BP 156/80
[2021-12-25] MEDS: methylPREDNISolone 40MG 1ML VIAL IV SCH (08:29)
[2021-12-25] MEDS: ALPRAZolam 0.5 MG TAB PO PRN (08:29)
[2021-12-25 08:30] VITALS: BP 156/80
[2021-12-25] MEDS: LACTOBACILLUS ACIDOPHILUS CAP (BACID) PO SCH (08:30)
[2021-12-25] MEDS: DOXYCYCLINE HYCLATE 100MG TABLET PO SCH (08:30)
[2021-12-25] MEDS: METOPROLOL TART 25 MG TABLET PO SCH (08:30)
[2021-12-25] MEDS: APIXABAN 5 MG TAB (ELIQUIS) PO SCH (08:30)
[2021-12-25] MEDS ORDERED: PRED10TA2 PO (10:29)
[2021-12-26] MEDS ORDERED: predniSONE 20 MG TAB PO SCH (09:00)
== END 2021-12-25 12:01 | disposition home or self-care (01) | DRG 720 ==
LOC: EDBD 07:35 → M ED 07:35 → M ED INP 10:29 → M MSPAV 12:32 → M PCU 12-23 14:07
PROVIDERS: ADMIT Internal Medicine Nephrology; ATTEND Family Medicine
DX: A41.9 Sepsis, unspecified organism (principal); E43 Unspecified severe protein-calorie malnutrition; J96.11 Chronic respiratory failure with hypoxia; J12.2 Parainfluenza virus pneumonia; R64 Cachexia; Z99.81 Dependence on supplemental oxygen; J44.1 Chronic obstructive pulmonary disease with (acute) exacerbation; I48.0 Paroxysmal atrial fibrillation; J44.0 Chronic obstructive pulmonary disease with (acute) lower respiratory infection; Z79.01 Long term (current) use of anticoagulants; I10 Essential (primary) hypertension; E78.5 Hyperlipidemia, unspecified; Z66 Do not resuscitate; Z20.822 Contact with and (suspected) exposure to COVID-19; Z79.899 Other long term (current) drug therapy; Z87.891 Personal history of nicotine dependence; Z86.16 Personal history of COVID-19; Z90.49 Acquired absence of other specified parts of digestive tract; E53.8 Deficiency of other specified B group vitamins; G47.00 Insomnia, unspecified; F41.9 Anxiety disorder, unspecified; Z68.1 Body mass index [BMI] 19.9 or less, adult; J15.9 Unspecified bacterial pneumonia; G43.909 Migraine, unspecified, not intractable, without status migrainosus; G40.909 Epilepsy, unspecified, not intractable, without status epilepticus

== ENCOUNTER → 2022-04-26 | Outpatient (CLI) | payer MEDICARE, OTHER ==
[~2022-04-26] MED LIST changes: +ACET-897 PO; +ALBU2.5V10 NEB; +ALPR0.5T3 PO; +ATOR1TAB19 PO; +B-12100010 PO; +BUDE10.2 INH; +DALI1TAB2 PO; +DOXY100C3 PO; +ELIQ5TAB PO; +JINT1TAB PO; -LIDOCAINE 1% SDV INJ 30 ML VIAL As Ordered ONE; +LOSA50TA28 PO; +METO1TAB32 PO; -MIDAZOLAM INJ 2 MG/2 ML VIAL (J2250) As Ordered ONE; +PRED10TA2 PO; +PRED5PAK PO; +SPIR12.9 INH; +TRAZ-257 PO; +VENTAER INH; -fentaNYL 100 MCG/2 ML INJECTION (J3010) As Ordered ONE
== END ==
LOC: M RAD 09:51
PROVIDERS: ATTEND Internal Medicine Pulmonary Disease
DX: J44.9 Chronic obstructive pulmonary disease, unspecified (principal)

== ENCOUNTER → 2022-05-03 | Outpatient (CLI) | payer MEDICARE, OTHER | LOC: M LABSMTC 09:26 | PROVIDERS: ATTEND Anesthesiology | DX: Z01.812 Encounter for preprocedural laboratory examination (principal); Z20.822 Contact with and (suspected) exposure to COVID-19 ==

== ENCOUNTER 2022-05-06 11:34 | Day surgery (SDC) | payer MEDICARE, OTHER ==
[~2022-05-06] VITALS: Ht 167.6 cm; Wt 49.4 kg
[~2022-05-06 11:34] MED LIST changes: +NS 1,000 ML IV ONE
[2022-05-06] MEDS ORDERED: fentaNYL 100 MCG/2 ML INJECTION As Ordered ONE (14:10)
[2022-05-06] MEDS ORDERED: propofoL 200 MG/20 ML VIAL As Ordered ONE (14:22)
[2022-05-06] MEDS ORDERED: LIDOCAINE 2% 100MG/5ML SDV (FOR ANES.) As Ordered ONE (14:22)
[2022-05-06] MEDS ORDERED: ePHEDrine SULFATE 25 MG/5 ML(5MG/ML) SYRINGE As Ordered ONE (14:28)
[2022-05-06 15:05] VITALS: BP 107/62
== END 2022-05-06 15:13 | disposition home or self-care (01) ==
LOC: M OPP 11:34
PROVIDERS: ATTEND Internal Medicine Gastroenterology
DX: D12.2 Benign neoplasm of ascending colon (principal); D12.3 Benign neoplasm of transverse colon; D12.5 Benign neoplasm of sigmoid colon; K63.5 Polyp of colon; K57.30 Diverticulosis of large intestine without perforation or abscess without bleeding; K64.8 Other hemorrhoids; R19.5 Other fecal abnormalities; D50.9 Iron deficiency anemia, unspecified; K31.7 Polyp of stomach and duodenum; Z79.01 Long term (current) use of anticoagulants; Z79.1 Long term (current) use of non-steroidal anti-inflammatories (NSAID); Z79.02 Long term (current) use of antithrombotics/antiplatelets; Z79.51 Long term (current) use of inhaled steroids; Z79.818 Long term (current) use of other agents affecting estrogen receptors and estrogen levels; Z79.899 Other long term (current) drug therapy; I10 Essential (primary) hypertension; I48.91 Unspecified atrial fibrillation; J44.9 Chronic obstructive pulmonary disease, unspecified; Z86.73 Personal history of transient ischemic attack (TIA), and cerebral infarction without residual deficits
CPT/HCPCS: 43251; 45385; 88305; J3010

== ENCOUNTER → 2022-05-31 | Outpatient (CLI) | payer MEDICARE, OTHER ==
[~2022-05-31] MED LIST changes: +GASTROGRAFIN SOLUTION 30ML (Q9963) As Ordered ONE; +ISOVUE-370 76% 100ML VIAL As Ordered ONE; -NS 1,000 ML IV ONE
== END ==
LOC: M RAD 09:30
PROVIDERS: ATTEND Physician Assistant Medical
DX: R19.5 Other fecal abnormalities (principal); J43.9 Emphysema, unspecified
CPT/HCPCS: 74177; Q9963; Q9967

== ENCOUNTER → 2022-06-17 | Outpatient (CLI) | payer MEDICARE, OTHER, BC, MEDICAID ==
[~2022-06-17] MED LIST changes: -GASTROGRAFIN SOLUTION 30ML (Q9963) As Ordered ONE; -ISOVUE-370 76% 100ML VIAL As Ordered ONE
== END ==
LOC: M PLAIMG 09:16
PROVIDERS: ATTEND Nurse Practitioner Family
DX: R06.02 Shortness of breath (principal); J43.9 Emphysema, unspecified; J98.4 Other disorders of lung

== ENCOUNTER → 2022-08-10 | Outpatient (REF) | payer MEDICARE, MEDICAID, OTHER, BC | LOC: M SFHCDERM 14:15 | PROVIDERS: ATTEND Nurse Practitioner Family | DX: C44.519 Basal cell carcinoma of skin of other part of trunk (principal) ==

== ENCOUNTER → 2022-10-19 | Outpatient (CLI) | payer MEDICARE, OTHER ==
[2022-10-19 09:39] LABS: BASO # 0.1 10^3/uL (0.0-0.2); BASO % 1.2 % (0.0-1.0); EOS # 0.1 10^3/uL (0.0-0.5); EOS % 2.2 % (0.0-3.0); HEMATOCRIT 39.1 % (36.0-47.0); HEMOGLOBIN 12.5 g/dl (12.0-15.5); LYMPH % 19.8 % (24.0-44.0); MEAN CORPUSCULAR HEMOGLOBIN 27.9 pg (27.0-33.0); MEAN CORPUSCULAR VOLUME 87.3 fl (80.0-96.0); MONO # 0.6 10^3/uL (0.0-0.8); MONO % 11.8 % (2.0-8.0); NEUTROPHILS # 3.2 10^3/uL (1.5-8.5); NEUTROPHILS % 64.8 % (36.0-66.0); PLATELET COUNT, AUTOMATED 309 10^3/uL (150-450); RED BLOOD COUNT 4.48 10^6/uL (4.00-5.40); WHITE BLOOD COUNT 4.9 10^3/uL (4.0-10.0)
[2022-10-19 10:11] LABS: ALBUMIN 3.8 G/DL (3.2-5.2); ALKALINE PHOSPHATASE 63 U/L (46-116); ALT/SGPT 18 U/L (7.0-40); AST/SGOT 21 U/L (<34); BLOOD UREA NITROGEN 11 MG/DL (9-23); CALCIUM LEVEL 9.1 MG/DL (8.3-10.6); CARBON DIOXIDE LEVEL 26 MMOL/L (20-31); CHLORIDE LEVEL 106 MMOL/L (98-107); CHOLESTEROL LEVEL 167 MG/DL (<200); CHOLESTEROL RISK RATIO 2.59 (<5); CREATININE FOR GFR 0.97 MG/DL (0.55-1.30); GLOMERULAR FILTRATION RATE > 60.0 (>45); GLUCOSE, FASTING 80 MG/DL (74-106); HDL CHOLESTEROL 64.4 MG/DL (>40); NON-HDL-C 102.6 MG/DL; SODIUM LEVEL 136 MMOL/L (136-145); TOTAL 25(OH) VITAMIN D 34.6 NG/ML (20.0-100.0); TOTAL PROTEIN 6.3 G/DL (5.7-8.2); TRIGLYCERIDES LEVEL 88 MG/DL (<150)
== END ==
LOC: M LAB 08:32
PROVIDERS: ATTEND Family Medicine
DX: Z00.00 Encounter for general adult medical examination without abnormal findings (principal); E78.2 Mixed hyperlipidemia; I10 Essential (primary) hypertension

== ENCOUNTER → 2022-12-02 | Outpatient (CLI) | payer MEDICARE, OTHER | LOC: M RAD 10:08 | PROVIDERS: ATTEND Family Medicine | DX: E04.2 Nontoxic multinodular goiter (principal) ==

== ENCOUNTER → 2023-06-08 | Outpatient (CLI) | payer MEDICARE, MEDICAID | LOC: M WHC 09:24 | PROVIDERS: ATTEND Internal Medicine | DX: M81.8 Other osteoporosis without current pathological fracture (principal) ==

== ENCOUNTER → 2023-10-19 | Outpatient (REF) | payer MEDICARE, MEDICAID | LOC: M LAB REF 16:21 | PROVIDERS: ATTEND Internal Medicine | DX: N39.0 Urinary tract infection, site not specified (principal) ==

== ENCOUNTER → 2023-11-23 | Outpatient (CLI) | payer MEDICARE, MEDICAID | LOC: M PLAIMG 08:52 | PROVIDERS: ATTEND Internal Medicine Critical Care Medicine | DX: J44.9 Chronic obstructive pulmonary disease, unspecified (principal); N28.1 Cyst of kidney, acquired; R91.8 Other nonspecific abnormal finding of lung field ==

== ENCOUNTER → 2023-11-30 | Outpatient (REF) | payer MEDICARE, MEDICAID | LOC: M LAB REF 10:31 | PROVIDERS: ATTEND Internal Medicine Critical Care Medicine | DX: J06.9 Acute upper respiratory infection, unspecified (principal) ==

== ENCOUNTER → 2024-01-18 | Outpatient (CLI) | payer MEDICARE, MEDICAID | LOC: M EKG 10:37 | PROVIDERS: ATTEND Internal Medicine Critical Care Medicine | DX: J44.9 Chronic obstructive pulmonary disease, unspecified (principal); R94.31 Abnormal electrocardiogram [ECG] [EKG] ==

== ENCOUNTER → 2024-02-14 | Outpatient (REF) | payer MEDICARE, MEDICAID | LOC: M SFHCDERM 17:52 | PROVIDERS: ATTEND Nurse Practitioner Family | DX: C44.519 Basal cell carcinoma of skin of other part of trunk (principal) ==

== ENCOUNTER 2024-02-23 07:36 | Emergency (ER) | payer MEDICAID, MEDICARE ==
[~2024-02-23] VITALS: Ht 165.1 cm; Wt 47.1 kg
[2024-02-23 12:26] VITALS: BP 125/67; TEMP 97.6; O2SAT 98
== END 2024-02-23 12:28 | disposition home or self-care (01) ==
LOC: M ED 07:36
DX: S63.602A Unspecified sprain of left thumb, initial encounter (principal); Y92.9 Unspecified place or not applicable; Y93.9 Activity, unspecified; Y99.9 Unspecified external cause status; I48.91 Unspecified atrial fibrillation; I10 Essential (primary) hypertension; J44.9 Chronic obstructive pulmonary disease, unspecified; Z79.1 Long term (current) use of non-steroidal anti-inflammatories (NSAID); Z79.51 Long term (current) use of inhaled steroids; Z79.899 Other long term (current) drug therapy

== ENCOUNTER → 2024-03-13 | Outpatient (REF) | payer MEDICARE, MEDICAID | LOC: M SFHCDERM 17:52 | PROVIDERS: ATTEND Physician Assistant | DX: C44.519 Basal cell carcinoma of skin of other part of trunk (principal) ==

== ENCOUNTER → 2024-06-18 | Outpatient (REF) | payer MEDICARE, MEDICAID | LOC: M LAB REF 12:39 | PROVIDERS: ATTEND Physician Assistant Medical | DX: R19.7 Diarrhea, unspecified (principal) ==

== ENCOUNTER → 2024-07-02 | Outpatient (REF) | payer MEDICARE, MEDICAID ==
[2024-07-02 14:17] LABS: IRON (FE) 24 UG/DL (50-170); PERCENT SATURATION 5.9 % (13.2-45.0); TOTAL IRON BINDING CAPACITY 409 UG/DL (250-425)
[2024-07-02 14:20] LABS: FERRITIN 8.7 NG/ML (7.3-270.7)
[2024-07-02 14:35] LABS: VITAMIN B12 LEVEL > 2000 PG/ML (211-911)
== END ==
LOC: M LAB REF 12:45
PROVIDERS: ATTEND Internal Medicine
DX: D64.9 Anemia, unspecified (principal)

== ENCOUNTER 2024-07-11 12:03 | Day surgery (SDC) | payer MEDICARE, MEDICAID ==
[~2024-07-11] VITALS: Ht 165.1 cm; Wt 48.8 kg
[~2024-07-11 12:03] MED LIST changes: +ALEN70TA82 PO; +ATOR40TA75 PO; +BUDE10.32 INH; +CYCLOPENTOLATE 1% OPHTH SOLN 2ML BTL OS SCH; +LOSA25TA13 PO; +MIDAZOLAM INJ 2MG/2ML VIAL As Ordered ONE; +OMEP-173 PO; +PROBCAP14 PO; +TIOT18INH INH; +ZITHTAB PO
[2024-07-11] MEDS: PHENYLEPHRINE 2.5% OPHTH SOL 2ML OS SCH (14:16)
[2024-07-11] MEDS: LIDOCAINE 3.5 % 1ML OPHTH TOPICAL GEL OU ONE (14:16)
[2024-07-11] MEDS: TROPICAMIDE 1% OPHTH SOLN 15ML OS SCH (14:16)
[2024-07-11] MEDS: OFLOXACIN 0.3 % (OCUFLOX) OPTH SOL 5ML OS ONE (14:16)
[2024-07-11] MEDS: PHENYLEPHRINE 10% OPHTH SOL 5ML OS PRN (14:17)
[2024-07-11] MEDS ORDERED: fentaNYL 100 MCG/2 ML INJECTION As Ordered ONE (15:05)
[2024-07-11] MEDS: CEFUROXIME 1MG/0.1ML INTRACAMERAL INJ As Ordered ONE (15:06)
[2024-07-11] MEDS: BSS IRRIG/VANCO(10MG)/TOBRA(5MG)/EPINEPH(1:1000-0.5CC)500ML BAG-ORONLY As Ordered ONE (15:06)
[2024-07-11] MEDS: LIDOCAINE 1% SDV 5ML VIAL As Ordered ONE (15:06)
[2024-07-11 15:25] VITALS: BP 106/69; TEMP 97.6; O2SAT 95
== END 2024-07-11 15:35 | disposition home or self-care (01) ==
LOC: M SDC 12:03
PROVIDERS: ATTEND Ophthalmology
DX: H25.12 Age-related nuclear cataract, left eye (principal); I48.91 Unspecified atrial fibrillation; I10 Essential (primary) hypertension; J44.89 Other specified chronic obstructive pulmonary disease; E78.00 Pure hypercholesterolemia, unspecified; Z79.01 Long term (current) use of anticoagulants; Z79.899 Other long term (current) drug therapy; Z79.51 Long term (current) use of inhaled steroids; Z86.73 Personal history of transient ischemic attack (TIA), and cerebral infarction without residual deficits; K21.9 Gastro-esophageal reflux disease without esophagitis; Z87.19 Personal history of other diseases of the digestive system; Z90.89 Acquired absence of other organs; Z87.891 Personal history of nicotine dependence
CPT/HCPCS: 66984; J0697; J2250; J3010; V2632

== ENCOUNTER → 2024-08-14 | Outpatient (REF) | payer MEDICARE, MEDICAID ==
[~2024-08-14] MED LIST changes: -CYCLOPENTOLATE 1% OPHTH SOLN 2ML BTL OS SCH; -MIDAZOLAM INJ 2MG/2ML VIAL As Ordered ONE
== END ==
LOC: M SFHCDERM 16:40
PROVIDERS: ATTEND Nurse Practitioner Family
DX: L82.0 Inflamed seborrheic keratosis (principal)

== ENCOUNTER → 2024-08-16 | Outpatient (CLI) | payer MEDICARE, MEDICAID ==
[2024-08-16 17:17] LABS: BLOOD UREA NITROGEN 9 MG/DL (9-23); CREATININE FOR GFR 0.89 MG/DL (0.55-1.30); GLOMERULAR FILTRATION RATE > 60.0 (>45)
[2024-08-16 17:18] LABS: IMMUNOGLOBULIN A 122.1 MG/DL (40-350); THYROID STIMULATING HORMONE 1.508 uIU/ML (0.55-4.78)
== END ==
LOC: M LAB 16:02
PROVIDERS: ATTEND Physician Assistant Medical
DX: R19.7 Diarrhea, unspecified (principal)

== ENCOUNTER → 2024-08-24 | Outpatient (CLI) | payer MEDICARE, MEDICAID ==
[~2024-08-24] MED LIST changes: +ISOVUE-370 76% 100ML VIAL As Ordered ONE
== END ==
LOC: M RAD 08:39
PROVIDERS: ATTEND Physician Assistant Medical
DX: R19.7 Diarrhea, unspecified (principal); R10.84 Generalized abdominal pain; R11.0 Nausea; N28.1 Cyst of kidney, acquired
CPT/HCPCS: 74177; Q9967

== ENCOUNTER → 2024-10-10 | Outpatient (CLI) | payer MEDICARE, MEDICAID ==
[~2024-10-10] MED LIST changes: +AZIT500T5 PO; -ISOVUE-370 76% 100ML VIAL As Ordered ONE; +SYMB16INH INH
[2024-10-10 09:49] LABS: CHOLESTEROL RISK RATIO 2.23 (<5); LDL CHOLESTEROL 69.4 MG/DL (<100)
== END ==
LOC: M LAB 08:42
PROVIDERS: ATTEND Nurse Practitioner Acute Care
DX: E78.5 Hyperlipidemia, unspecified (principal)

== ENCOUNTER 2024-10-25 09:18 | Day surgery (SDC) | payer MEDICARE, MEDICAID ==
[~2024-10-25] VITALS: Ht 165.1 cm; Wt 47.9 kg
[2024-10-25] MEDS ORDERED: propofoL 500 MG/50 ML VIAL As Ordered ONE (10:34)
[2024-10-25] MEDS ORDERED: propofoL 200 MG/20 ML VIAL As Ordered ONE (10:39)
[2024-10-25] MEDS ORDERED: PHENYLephrine 500MCG 5ML (100MCG/ML) SYRINGE As Ordered ONE (11:14)
[2024-10-25 11:29] VITALS: TEMP 97.2
[2024-10-25 11:53] VITALS: BP 139/94; O2SAT 98
== END 2024-10-25 11:54 | disposition home or self-care (01) ==
LOC: M OPP 09:18
PROVIDERS: ATTEND Internal Medicine Gastroenterology
DX: D12.3 Benign neoplasm of transverse colon (principal); D12.5 Benign neoplasm of sigmoid colon; K64.8 Other hemorrhoids; Z86.0100 Personal history of colon polyps, unspecified; K44.9 Diaphragmatic hernia without obstruction or gangrene; R11.0 Nausea; Z86.018 Personal history of other benign neoplasm; I48.91 Unspecified atrial fibrillation; Z91.048 Other nonmedicinal substance allergy status; Z79.01 Long term (current) use of anticoagulants; Z79.51 Long term (current) use of inhaled steroids; Z79.899 Other long term (current) drug therapy; Z86.73 Personal history of transient ischemic attack (TIA), and cerebral infarction without residual deficits; J44.9 Chronic obstructive pulmonary disease, unspecified
CPT/HCPCS: 43235; 45380; 45385; 88305; J2371

== ENCOUNTER → 2024-12-06 | Outpatient (CLI) | payer MEDICARE, MEDICAID | LOC: M RAD 10:45 | PROVIDERS: ATTEND Internal Medicine Critical Care Medicine | DX: J44.9 Chronic obstructive pulmonary disease, unspecified (principal) ==

== ENCOUNTER 2025-02-06 15:13 | Outpatient (CLI) | payer MEDICARE, MEDICAID ==
[~2025-02-06] VITALS: Ht 165.1 cm; Wt 46.8 kg
[~2025-02-06 15:13] MED LIST changes: +ALBUTEROL SULFATE 2.5 MG/0.5 ML INH CONCENTRATE NEB SOLN INH PRN; +EPINEPHrine INJ 1 MG/ML 1ML AMP IM PRN; +NS (Normal Saline) 0.9% 1,000 ML IV SCH; +diphenhydrAMINE 50 MG/ML VIAL IV PRN
[2025-02-06 15:30] VITALS: BP 123/68; O2SAT 97
[2025-02-06] MEDS: FERRIC CARBOXYMALTOSE IV ONE (15:57)
[2025-02-06] MEDS: NS IV ONE (15:57)
[2025-02-06 17:04] VITALS: BP 123/60; O2SAT 99
== END 2025-02-06 17:05 ==
LOC: M INFU 15:13
PROVIDERS: ATTEND Internal Medicine
DX: D50.9 Iron deficiency anemia, unspecified (principal); Z91.048 Other nonmedicinal substance allergy status
CPT/HCPCS: 96365; J1439

== ENCOUNTER → 2025-02-20 | Outpatient (REF) | payer MEDICARE, MEDICAID ==
[~2025-02-20] MED LIST changes: -ALBUTEROL SULFATE 2.5 MG/0.5 ML INH CONCENTRATE NEB SOLN INH PRN; -EPINEPHrine INJ 1 MG/ML 1ML AMP IM PRN; -NS (Normal Saline) 0.9% 1,000 ML IV SCH; -diphenhydrAMINE 50 MG/ML VIAL IV PRN
[2025-02-20 14:40] LABS: IRON (FE) 139.0 UG/DL (50-170); PERCENT SATURATION 48.1 % (13.2-45.0)
[2025-02-20 14:42] LABS: VITAMIN B12 LEVEL 1515.0 PG/ML (211-911)
== END ==
LOC: M LAB REF 12:01
PROVIDERS: ATTEND Internal Medicine
DX: D64.9 Anemia, unspecified (principal); N39.0 Urinary tract infection, site not specified

== ENCOUNTER → 2025-02-28 | Outpatient (REF) | payer MEDICARE, MEDICAID ==
[2025-02-28 13:47] LABS: APPEARANCE, URINE CLOUDY (CLEAR); BACTERIA, URINE AUTO NEGATIVE (NEGATIVE); BILIRUBIN, URINE AUTO NEGATIVE (NEGATIVE); BLOOD, URINE BLOOD 1+ (NEGATIVE); GLUCOSE, URINE (UA) AUTO NEGATIVE (NEGATIVE); KETONE, URINE AUTO NEGATIVE (NEGATIVE); LEUKOCYTE ESTERASE, URINE AUTO 3+ (NEGATIVE); MUCUS, URINE SMALL (NEGATIVE); NITRITE, URINE AUTO NEGATIVE (NEGATIVE); PROTEIN, URINE AUTO NEGATIVE (NEGATIVE); RBC, URINE AUTO 12 /HPF (0-3); SPECIFIC GRAVITY URINE AUTO 1.013 (1.002-1.035); SQUAMOUS EPITHELIAL CELL UR AU 14 /HPF (0-6); UROBILINOGEN, URINE AUTO 0.2 mg/dL (0.0-2.0); WBC, URINE AUTO 54 /HPF (0-3)
== END ==
LOC: M LAB REF 12:52
PROVIDERS: ATTEND Internal Medicine
DX: R31.9 Hematuria, unspecified (principal)

== ENCOUNTER → 2025-03-14 | Outpatient (CLI) | payer MEDICARE, MEDICAID | LOC: M PLARAD 10:44 | PROVIDERS: ATTEND Internal Medicine | DX: M47.817 Spondylosis without myelopathy or radiculopathy, lumbosacral region (principal) ==

== ENCOUNTER → 2025-03-22 | Outpatient (CLI) | payer MEDICARE, MEDICAID ==
[2025-03-22 11:44] LABS: C REACTIVE PROTEIN QUANTITATIV < 0.50 MG/DL (<1.0)
== END ==
LOC: M LAB 10:54
PROVIDERS: ATTEND Internal Medicine Cardiovascular Disease
DX: R07.9 Chest pain, unspecified (principal)

== ENCOUNTER → 2025-03-29 | Outpatient (CLI) | payer MEDICARE, MEDICAID | LOC: M RAD 07:03 | PROVIDERS: ATTEND Internal Medicine Critical Care Medicine | DX: R91.8 Other nonspecific abnormal finding of lung field (principal) ==

== ENCOUNTER 2025-04-24 08:30 | Outpatient (RCR) | payer MEDICARE, MEDICAID ==
[2025-04-27] MEDS ORDERED: PRED20TA PO (11:05)
== END 2025-04-30 ==
LOC: M PT 08:30
PROVIDERS: ATTEND Internal Medicine
DX: M51.362 Other intervertebral disc degeneration, lumbar region with discogenic back pain and lower extremity pain (principal)

== ENCOUNTER 2025-04-27 07:56 | Emergency (ER) | payer MEDICARE, MEDICAID ==
[~2025-04-27] VITALS: Ht 165.1 cm; Wt 47.5 kg
[2025-04-27 07:59] VITALS: TEMP 97.6
[2025-04-27 08:37] LABS: BASO # 0.0 10^3/uL (0.0-0.2); BASO % 0.9 % (0.0-1.0); EOS # 0.1 10^3/uL (0.0-0.5); EOS % 2.8 % (0.0-3.0); LYMPH # 1.4 10^3/uL (1.5-5.0); LYMPH % 32.6 % (24.0-44.0); MONO # 0.5 10^3/uL (0.0-0.8); MONO % 12.2 % (2.0-8.0); NEUTROPHILS # 2.2 10^3/uL (1.5-8.5); NEUTROPHILS % 51.3 % (36.0-66.0); PLATELET COUNT, AUTOMATED 232 10^3/uL (150-450)
[2025-04-27 09:01] LABS: ALT/SGPT 25.0 U/L (7.0-40); AST/SGOT 23.0 U/L (<34); CALCIUM LEVEL 8.7 MG/DL (8.3-10.6); CARBON DIOXIDE LEVEL 27.0 MMOL/L (20-31); CHLORIDE LEVEL 105.0 MMOL/L (98-107); CREATININE FOR GFR 0.96 MG/DL (0.55-1.30); GLOMERULAR FILTRATION RATE 64.9 (>45); POTASSIUM SERUM 4.2 MMOL/L (3.5-5.1); SODIUM LEVEL 139.0 MMOL/L (136-145)
[2025-04-27] MEDS: predniSONE 20 MG TAB PO ONE (09:11)
[2025-04-27 09:14] LABS: VENOUS BASE EXCESS 0.7 (-2.0-2.0); VENOUS HCO3 26.9 MMOL/L (23.0-27.0); VENOUS O2 SATURATION 66.7 % (60.0-80.0); VENOUS PARTIAL PRESSURE CO2 48.7 mmHg (38.0-50.0); VENOUS PARTIAL PRESSURE O2 35.4 mmHg (30.0-50.0); VENOUS PH 7.360 UNITS (7.330-7.430); VENOUS STANDARD HCO3 24.3 MMOL/L; VENOUS TOTAL CO2 28.4 MMOL/L (24.0-28.0)
[2025-04-27] MEDS: COMBIVENT RESPIMAT 100-20 MCG INHALER 4 GM INH PRN (09:26)
[2025-04-27 10:59] VITALS: O2SAT 94
[2025-04-27 11:00] VITALS: BP 123/75; O2SAT 96
[2025-04-27] MEDS ORDERED: PRED20TA PO (11:05)
== END 2025-04-27 11:23 | disposition home or self-care (01) ==
LOC: M ED 07:56
DX: J44.9 Chronic obstructive pulmonary disease, unspecified (principal); E78.5 Hyperlipidemia, unspecified; I10 Essential (primary) hypertension; G40.909 Epilepsy, unspecified, not intractable, without status epilepticus; Z86.79 Personal history of other diseases of the circulatory system; Z91.048 Other nonmedicinal substance allergy status; Z87.891 Personal history of nicotine dependence; F19.11 Other psychoactive substance abuse, in remission; F10.11 Alcohol abuse, in remission; Z79.52 Long term (current) use of systemic steroids; Z79.01 Long term (current) use of anticoagulants; Z79.02 Long term (current) use of antithrombotics/antiplatelets; Z79.899 Other long term (current) drug therapy
CPT/HCPCS: 36415; 71045; 80048; 80076; 82803; 83605; 85025; 87040; 87486; 87581; 87633; 87798; 93005; 93041; 94640; 94664; 94760; 99285; J7512

== ENCOUNTER 2025-05-20 08:29 | Outpatient (RCR) | payer MEDICARE, MEDICAID ==
[~2025-05-20 08:29] MED LIST changes: +PRED20TA PO
== END 2025-05-31 ==
LOC: M PT 08:29
PROVIDERS: ATTEND Internal Medicine
DX: M51.369 Other intervertebral disc degeneration, lumbar region without mention of lumbar back pain or lower extremity pain (principal)

== ENCOUNTER → 2025-06-03 | Outpatient (REF) | payer MEDICARE, MEDICAID ==
[2025-06-03 15:17] LABS: IRON (FE) 55.0 UG/DL (50-170); PERCENT SATURATION 20.1 % (13.2-45.0)
== END ==
LOC: M LAB REF 14:10
PROVIDERS: ATTEND Internal Medicine
DX: D50.9 Iron deficiency anemia, unspecified (principal)